=== PATIENT | female | born 1950 | race Caucasian/White ===

== ENCOUNTER → 2017-03-24 | Outpatient (CLI) | payer MEDICARE ==
--- NOTE | 2017-03-23 15:45 | 24HR ---
[place] [address] HOLTER MONITOR REPORT Name: BETH AGGARWALRA Shantell Room: [facility]#: [id number] Admission: Attend Phys: Sally Espinoza MD Discharge: Date of : 50 Date of Service: 03/23/17 1141 Report #: [id number] THIS REPORT FOR: //name// [facility] Test Date: 2017-03-23 Test Time: 11:41:21 Pat Name: KAROL AGGARWAL Department: Room: Gender: Nurse Technician: : 1950 Requested By: Sally Espinoza Order Number: [id number] Esme WALTERS: Idris Valera Interpretive Statements sinus rhythm at rates of 51-150, average 75 rare isolated pvc's occasional pac's with single 9 beat run of svt at rate of 119 no significant pauses Electronically Signed On 03-23-2017 15:45:25 COMPOUNDER by Idris Valera [email or web address] <ELECTRONICALLY SIGNED> By: Idris Valera MD, [facility] 03/23/17 1545 1141 1141 Idris Valera MD, FACC /EPI
[~2017-03-24] MED LIST: BACTRIM DS TAB1 EACH PO; PYRIDIUM200 MG PO
--- NOTE | 2017-03-24 16:34 | 2DMMODE ---
[place] [address] 2 D/M-MODE ECHOCARDIOGRAM Name: JASENBETH MARADIAGARA Stinson Room: [facility]#: [id number] Admission: 03/24/17 Attend Phys: Sally Espinoza MD Discharge: Date of : 50 Date of Service: 03/24/17 1633 Report #: [id number] THIS REPORT FOR: //name// APPROVED REPORT Study performed: 03/24/2017 15:05:15 EXAM: Comprehensive 2D, Doppler, and color-flow Echocardiogram Patient Location: Out-Patient Status: routine BSA: 1.86 HR: 74 bpm BP: 140/80 mmHg Other Information Study Quality: Good Indications Palpitations 2D Dimensions LVEF(%): 80.64 (>50%) IVSd: 11.21 (7-11mm) LVOT Diam: 19.95 (18-24mm) LVDd: 44.31 mm PWd: 10.27 (7-11mm) Ascending Ao: 28.14 (22-36mm) LVDs: 22.55 (25-40mm) Aortic Root: 29.91 mm Roberts's LVEF: 80.64 % Volumes Left Atrial Volume (Systole) LA ESV Index: 18.30 mL/m2 Aortic Valve AoV Peak Aiden.: 1.32 m/s AO Peak Gr.: 6.97 mmHg LVOT Max P.95 mmHg AO Mean Gr.: 3.38 mmHg LVOT Mean P.16 mmHg LVOT Max V: 1.11 m/s AO V2 VTI: 25.77 cm LVOT Mean V: 0.66 m/s TERRA (VTI): 2.72 cm2 LVOT V1 VTI: 22.43 cm Mitral Valve E/A Ratio: 1.07 MV Decel. Time: 167.83 [place] [address] 2 D/M-MODE ECHOCARDIOGRAM Name: JASENKAROL Stinson Room: [facility]#: [id number] Admission: 03/24/17 Attend Phys: Sally Espinoza MD Discharge: Date of : 50 Date of Service: 03/24/17 1633 Report #: [id number] MV E Max Aiden.: 0.70 m/s MV PHT: 48.67 ms MVA (PHT): 4.52 cm2 TDI E/Lateral E': 5.38 E/Medial E': 5.83 Medial E' Aiden.: 0.12 m/s Lateral E' Aiden.: 0.13 m/s Pulmonary Valve PV Peak Aiden.: 1.06 m/s PV Peak Gr.: 4.52 mmHg Tricuspid Valve TR Peak Gr.: 28.14 mmHg RVSP: 33.14 mmHg Left Ventricle The left ventricle is normal size. There is normal LV segmental wall motion. There is normal left ventricular wall thickness. Left ventricular systolic function is normal. The left ventricular ejection fraction is within the normal range. LVEF is 60%. The left ventricular diastolic function is normal. Right Ventricle The right ventricle is normal size. The right ventricular systolic function is normal. Atria The left atrium size is normal. The right atrium size is normal. Aortic Valve The aortic valve is normal in structure. No aortic regurgitation is present. There is no aortic valvular stenosis. Mitral Valve The mitral valve is normal in structure. Mild mitral regurgitation. No evidence of mitral valve stenosis. Tricuspid Valve The tricuspid valve is normal in structure. Mild tricuspid regurgitation. The RVSP is __33.1 mmHg. Pulmonic Valve The pulmonary valve is normal in structure. There is no [place]mon[place] [address] 2 D/M-MODE ECHOCARDIOGRAM Name: KAROL AGGARWAL Room: [facility]#: [id number] Admission: 03/24/17 Attend Phys: Sally Espinoza MD Discharge: Date of : 50 Date of Service: 03/24/17 1633 Report #: [id number] Great Vessels The aortic root is normal in size. IVC is normal in size and collapses with >50% inspiration Pericardium There is no pericardial effusion. <Conclusion> The left ventricle is normal size. There is normal left ventricular wall thickness. Left ventricular systolic function is normal. The left ventricular ejection fraction is within the normal range. LVEF is 60%. The left ventricular diastolic function is normal. The right ventricle is normal size. The left atrium size is normal. The aortic valve is normal in structure. The mitral valve is normal in structure. Mild mitral regurgitation. The tricuspid valve is normal in structure. Mild tricuspid regurgitation. The RVSP is __33.1 mmHg. IVC is normal in size and collapses with >50% inspiration There is no pericardial effusion. There is normal LV segmental wall motion. <ELECTRONICALLY SIGNED> By: Idris Valera MD, FACC 03/24/17 1633 [id number] Idris Valera MD, FACC /INF
== END ==
LOC: M.CRD 14:27
DX: I08.1 Rheumatic disorders of both mitral and tricuspid valves (principal)

== ENCOUNTER 2017-12-30 12:20 | Emergency (ER) | payer MEDICARE ==
[~2017-12-30] VITALS: Ht 167.6 cm; Wt 77.1 kg
[2017-12-30] MEDS ORDERED: VITAMIN D3400 UNIT PO (12:29)
[2017-12-30] MEDS ORDERED: CALCIUM 500 +1 EAC5 PO (12:29)
[2017-12-30] MEDS ORDERED: CENTRUM SILVER1 EAC4 PO (12:29)
[2017-12-30] MEDS ORDERED: AZO CRANBERRY1 EACH PO (12:30)
[2017-12-30] MEDS ORDERED: ASPIRIN81 M2 PO (12:30)
[2017-12-30] MEDS ORDERED: CALCIUM 600 +1 EAC1 PO (12:30)
[2017-12-30 12:44] LABS: ABSOLUTE EOSINOPHILS 0.1 thou/uL (0.0-0.7); ABSOLUTE LYMPHOCYTES 1.6 thou/uL (0.8-5.3); ABSOLUTE MONOCYTES 0.5 thou/uL (0.0-1.2); BASOPHILS 0.6 %; EOSINOPHILS 1.9 %; HEMATOCRIT 40.8 % (37.0-47.0); HEMOGLOBIN 13.8 gm/dL (12.0-15.0); LYMPHOCYTES 30.4 %; MCH 33.2 pg (26.0-34.0); MCHC 33.8 g/dL (28.0-37.0); MCV 98.2 fL (80.0-100.0); MONOCYTES 9.6 %; MPV 7.8 fl. (7.2-11.1); NUCLEATED RBCS 0 /100WBC; PLATELET COUNT* 261 thou/uL (150-400); POLYS 57.5 %; RBC 4.15 mil/uL (4.20-5.00); RDW-CV 13.4 % (10.5-14.5); WBC 5.2 thou/uL (4.0-11.0)
[2017-12-30 12:51] LABS: ANION GAP 7 mmol/L (7-16); BUN 20 mg/dL (7-18); CALCIUM 9.5 mg/dL (8.5-10.1); CHLORIDE 103 mmol/L (98-107); CO2 29 mmol/L (21-32); GLUCOSE 99 mg/dL (70-99); POTASSIUM 3.7 mmol/L (3.5-5.1); SODIUM 139 mmol/L (136-145)
[2017-12-30 12:54] LABS: APTT 26.6 Seconds (25.0-31.3)
[2017-12-30 13:10] LABS: ALBUMIN 3.7 g/dL (3.4-5.0); ALKALINE PHOSPHATASE 102 U/L (46-116); CK-MB MASS 0.9 ng/mL (<0.5-3.6); LIPASE 204 U/L (73-393); NT-PRO BRAIN NAT PEPTIDE 50 pg/mL (<300); SGOT 17 U/L (15-37); SGPT 22 U/L (30-65); TOTAL BILIRUBIN 0.4 mg/dL (<0.1-1.0); TOTAL PROTEIN 7.2 g/dL (6.4-8.2); TROPONIN-I LEVEL <0.06 ng/mL (<0.06)
[2017-12-30 13:39] VITALS: BP 160/83
--- NOTE | 2017-12-30 18:12 | EKG ---
[place] [address] ELECTROCARDIOGRAM REPORT Name: KAROL AGGARWAL Room: [facility]#: [id number] Admission: 12/30/17 Attend Phys: Discharge: 12/30/17 Date of : 50 Report #: [id number] THIS REPORT FOR: //name// [facility] ED Test Date: 2017-12-30 Test Time: 12:26:18 Pat Name: KAROL AGGARWAL Department: Room: Gender: F Insurance Adjuster: Durga RAGSDALE : 1950 Requested By: Real Chavez Order Number: [id number] MD: Rodney Carson Measurements Intervals [place] Rate: 73 P: 52 AK: 153 QRS: 21 QRSD: 81 T: 25 QT: 402 QTc: 443 Interpretive Statements Sinus rhythm Borderline T abnormalities, inferior leads Baseline wander in lead(s) II,III,aVF No previous ECG available for comparison Electronically Signed On 12-30-2017 18:12:21 ENVIRONMENTAL INTERN by Rodney Carson [email or web address] <ELECTRONICALLY SIGNED> By: Rodney Carson MD, [facility] 12/30/171811 1226 1226 Rodney Carson MD, FACC /EPI
== END 2017-12-30 13:37 | disposition home or self-care (01) ==
LOC: M.ERS 12:20
PROVIDERS: Family Medicine
DX: R00.2 Palpitations (principal)

== ENCOUNTER → 2018-03-04 | Outpatient (CLI) | payer MEDICARE ==
[~2018-03-04] MED LIST changes: +ASPIRIN81 M2 PO; +AZO CRANBERRY1 EACH PO; +CALCIUM 500 +1 EAC5 PO; +CALCIUM 600 +1 EAC1 PO; +CENTRUM SILVER1 EAC4 PO; +VITAMIN D3400 UNIT PO
[2018-03-04 08:19] LABS: ALBUMIN 3.3 g/dL (3.4-5.0); ALKALINE PHOSPHATASE 118 U/L (46-116); CHOLESTEROL 192 mg/dL (<200); DIRECT BILIRUBIN 0.1 mg/dL (<0.1-0.3); HDL CHOLESTEROL 68 mg/dL (>40); LDL CHOLESTEROL 110 mg/dL (<100); SERUM ASSESSMENT Clear; SGOT 15 U/L (15-37); SGPT 23 U/L (30-65); TC:HDL 2.8 Ratio (Not establshd); TOTAL BILIRUBIN 0.4 mg/dL (<0.1-1.0); TRIGLYCERIDE 72 mg/dL (<150); VLDL 14 mg/dL (<40)
== END ==
LOC: M.RAD 07:40
PROVIDERS: Nurse Practitioner Family
DX: Z12.31 Encounter for screening mammogram for malignant neoplasm of breast (principal); E78.5 Hyperlipidemia, unspecified

== ENCOUNTER 2018-06-03 21:14 | Emergency (ER) | payer MEDICARE ==
[~2018-06-03] VITALS: Ht 167.6 cm; Wt 77.1 kg
[2018-06-03] MEDS ORDERED: VITAMIN D32000 UNI1 PO (21:35)
[2018-06-03] MEDS ORDERED: PREDNISONE 20 M20 M1 PO (23:31)
[2018-06-04 00:11] VITALS: BP 158/89
[2018-06-05] MEDS ORDERED: EPIPEN0.3 MG/0.1 IM (10:50)
== END 2018-06-04 00:11 | disposition home or self-care (01) ==
LOC: M.ERS 21:14
DX: L50.9 Urticaria, unspecified (principal); R22.0 Localized swelling, mass and lump, head; T78.40XA Allergy, unspecified, initial encounter; Z88.1 Allergy status to other antibiotic agents; Z88.5 Allergy status to narcotic agent; Z88.8 Allergy status to other drugs, medicaments and biological substances; X58.XXXA Exposure to other specified factors, initial encounter

== ENCOUNTER 2018-06-05 09:16 | Emergency (ER) | payer MEDICARE ==
[~2018-06-05] VITALS: Ht 167.6 cm; Wt 84.3 kg
[~2018-06-05 09:16] MED LIST changes: +PREDNISONE 20 M20 M1 PO; +VITAMIN D32000 UNI1 PO
[2018-06-05] MEDS ORDERED: EPIPEN0.3 MG/0.1 IM (10:50)
[2018-06-05 11:31] VITALS: BP 129/62
== END 2018-06-05 11:32 | disposition home or self-care (01) ==
LOC: M.ERS 09:16
DX: L50.9 Urticaria, unspecified (principal); T78.1XXA Other adverse food reactions, not elsewhere classified, initial encounter; Z88.1 Allergy status to other antibiotic agents; Z88.5 Allergy status to narcotic agent; Z88.8 Allergy status to other drugs, medicaments and biological substances; X58.XXXA Exposure to other specified factors, initial encounter

== ENCOUNTER → 2018-12-23 | Outpatient (CLI) | payer MEDICARE ==
[~2018-12-23] MED LIST changes: +EPIPEN0.3 MG/0.1 IM
== END ==
LOC: M.RAD 09:33
DX: M47.812 Spondylosis without myelopathy or radiculopathy, cervical region (principal); M43.13 Spondylolisthesis, cervicothoracic region

== ENCOUNTER → 2019-02-10 | Outpatient (CLI) | payer MEDICARE | LOC: M.RAD 08:46 | DX: M81.0 Age-related osteoporosis without current pathological fracture (principal); M85.89 Other specified disorders of bone density and structure, multiple sites; Z88.8 Allergy status to other drugs, medicaments and biological substances ==

== ENCOUNTER → 2019-02-17 | Outpatient (CLI) | payer MEDICARE ==
[2019-02-17 12:49] LABS: CREATININE 1.1 mg/dL (0.6-1.3)
== END ==
LOC: M.LAB 12:07 → M.MRI 13:30
PROVIDERS: Internal Medicine
DX: G51.9 Disorder of facial nerve, unspecified (principal); Z88.8 Allergy status to other drugs, medicaments and biological substances

== ENCOUNTER → 2019-07-01 | Outpatient (CLI) | payer MEDICARE ==
[2019-07-01 15:56] LABS: ALBUMIN 3.8 g/dL (3.4-5.0); CALCIUM 8.8 mg/dL (8.5-10.1); MAGNESIUM 2.1 mg/dL (1.8-2.4); POTASSIUM 4.9 mmol/L (3.5-5.1); TOTAL BILIRUBIN 0.4 mg/dL (<0.1-1.0); TOTAL PROTEIN 7.3 g/dL (6.4-8.2)
== END ==
LOC: M.LAB 15:23
PROVIDERS: Nurse Practitioner
DX: Z13.29 Encounter for screening for other suspected endocrine disorder (principal); R00.2 Palpitations

== ENCOUNTER → 2019-11-10 | Outpatient (CLI) | payer MEDICARE | LOC: M.RAD 07:52 | PROVIDERS: ATTEND Internal Medicine | DX: Z12.31 Encounter for screening mammogram for malignant neoplasm of breast (principal) ==

== ENCOUNTER → 2019-12-27 | Outpatient (CLI) | payer OTHER | LOC: M.RAD 10:23 | PROVIDERS: ATTEND Internal Medicine Cardiovascular Disease | DX: Z13.6 Encounter for screening for cardiovascular disorders (principal) ==

== ENCOUNTER 2020-05-15 03:50 | Emergency (ER) | payer MEDICARE ==
[~2020-05-15] VITALS: Ht 165.1 cm; Wt 77.1 kg
[2020-05-15 04:16] LABS: URINE BILIRUBIN NEGATIVE (Negative); URINE BLOOD 3+ (Negative); URINE CLARITY CLEAR; URINE COLOR YELLOW; URINE GLUCOSE-RANDOM NEGATIVE (Negative); URINE KETONES NEGATIVE (Negative); URINE NITRITE-REFLEX NEGATIVE (Negative); URINE PROTEIN 1+ (Negative); URINE UROBILINOGEN 0.2 E.U./dl (0.2-1.0)
[2020-05-15 04:20] LABS: URINE LEUKOCYTES-REFLEX 3+ (Negative)
[2020-05-15] MEDS ORDERED: PYRIDIUM200 MG PO (04:52)
[2020-05-15] MEDS ORDERED: MACROBID 100 M100 M1 PO (04:52)
[2020-05-15] MEDS ORDERED: ZOFRAN ODT4 MG PO (04:52)
[2020-05-15 05:06] VITALS: BP 120/68
[2020-05-15 05:21] LABS: SQUAMOUS 0-3 Few /LPF (0-3)
[2020-05-15 05:22] LABS: BACTERIA-REFLEX 1-9 Few /HPF (None Seen); CASTS None Seen /LPF (None Seen); CRYSTALS None Seen /LPF (None Seen); MUCUS 0-3 Light strn/LPF (None Seen); URINE RBC >20 Many /HPF (0-2)
== END 2020-05-15 05:06 | disposition home or self-care (01) ==
LOC: M.ERS 03:50
PROVIDERS: Emergency Medicine
DX: N39.0 Urinary tract infection, site not specified (principal); Z88.1 Allergy status to other antibiotic agents; Z88.5 Allergy status to narcotic agent; Z88.8 Allergy status to other drugs, medicaments and biological substances

== ENCOUNTER → 2020-11-13 | Outpatient (CLI) | payer MEDICARE ==
[~2020-11-13] MED LIST changes: +MACROBID 100 M100 M1 PO; +ZOFRAN ODT4 MG PO
== END ==
LOC: M.RAD 07:46
PROVIDERS: ATTEND Internal Medicine
DX: Z12.31 Encounter for screening mammogram for malignant neoplasm of breast (principal)